=== PATIENT | male | born 1955 | race Caucasian/White ===

== ENCOUNTER 2017-02-17 17:20 | Inpatient (IN) | payer MEDICARE, SELFPAY ==
[2017-02-17] MEDS ORDERED: PROVENTIL 2.5 MG/3 ML NEB IH ONE ×4 (17:49→19:45)
[2017-02-17] MEDS ORDERED: Zithromax 500 MG/ 250 ML NaCl Premix 250 ML IV ONE ×2 (17:49→18:32)
[2017-02-17] MEDS ORDERED: solu-MEDROL 125 MG IV ONE (17:49)
[2017-02-17] MEDS ORDERED: TYLENOL 325 MG PO STA (17:49)
[2017-02-17] MEDS ORDERED: Sodium Chloride 0.9% 1000 ML 1,000 ML IV STA ×2 (17:49→18:06)
[2017-02-17] MEDS ORDERED: ROCEPHIN 1 Gm-D5w 50 ml Bag** 50 ML IV ONE ×2 (17:49→17:57)
[2017-02-17] MEDS ORDERED: TYLENOL 325 MG ONE (17:54)
--- NOTE | 2017-02-17 17:55 | ERPHSYRPT ---
- History of Present Illness Time Seen by Provider: 02/17/17 17:50 Source: patient Exam Limitations: other Patient Subjective Stated Complaint: PT REPORTS INCREASED PRODUCTIVE COUGH-FEVER -REPORTS PAIN ONLY WITH COUGHING-STATES THAT HE HAS RANDOM MUSCLE SPASMS WITH COUGHING Triage Nursing Assessment: PT HOT FLUSHED-RESP LABORED-WHEEZES NOTED THROUGHOUT- RETRACTIONS NOTED Physician History: PATIENT WITH HISTORY OF COPD, HYPERTENSION, AND SLEEP APNEA, COMPLAINS OF DYSPNEA, FEVER, CHILLS TODAY ASSOCIATED WITH MARKED EXERTIONAL DYSPNEA AND PRODUCTIVE COUGH GREEN SPUTUM. DENIES CHEST PAIN. Timing/Duration: day(s) Severity of Dyspnea-Max: severe Severity of Dyspnea-Current: severe Possible Cause: occasional episodes Modifying Factors: Improves With: coughing Associated Symptoms: cough, wheezing Allergies/Adverse Reactions: No Known Drug Allergies Allergy (Verified 02/17/17 17:37) Home Medications: AMITRIPTYLINE HCL 50 mg Tab [AMITRIPTYLINE HCL 50 mg Tablet] 50 mg PO HS [History] Aspirin/Dipyridamole [Aggrenox Capsules] 1 cap PO BID 09/02/15 [History] Diazepam [Valium] 10 mg PO HS 09/02/15 [History] Fenofibrate,Micronized [Fenofibrate] 134 mg PO DAILY 09/02/15 [History] Gabapentin [Neurontin] 600 mg PO BID 09/02/15 [History] Hydrocodone Bit/Acetaminophen [Hydrocodon-Acetaminophn 10-325] 10 each PO Q6HPRN PRN 09/02/15 [History] Ipratropium/Albuterol Sulfate [Combivent Respimat Common Canister] 1 puff IH QID 09/02/15 [History] Lamotrigine 100 mg [lamICTAL 100MG TABLET] 100 mg PO BID 09/02/15 [History ] Meloxicam 15 mg [Meloxicam 15 MG] 15 mg PO DAILY 09/02/15 [History] Metoprolol Succinate 50 mg [Toprol Xl 50 MG] 50 mg PO DAILY 09/02/15 [ History] PANTOPRAZOLE 40 mg Tablet [Protonix 40MG Tablet] 40 mg PO DAILY 09/02/15 [ History] Roflumilast [Daliresp] 500 mcg PO DAILY 09/02/15 [History] Verapamil HCl 120 mg PO HS 09/02/15 [History] Zonisamide [Zonegran] 100 mg PO TID 09/02/15 [History] Albuterol/Ipratropium 3ml Neb* [DUONEB 0.5-3 MG/3 ml Neb] 3 ml IH QID [History] Docusate Sodium 100 mg [Colace 100 MG] 100 mg PO BID 02/21/16 [History] Fluticasone/Salmeterol Disc [Advair 250-50 Diskus 14 Dose] 1 each IH BID 02/21/16 [History] Losartan/Hydrochlorothiazide [Losartan-Hctz 50-12.5 mg Tab] 1 each PO DAILY 03/03 [History] Quetiapine Fumarate [Seroquel] 50 mg PO HS 02/21/16 [History] Tizanidine HCl 4 mg [Zanaflex 4 MG] 4 mg PO HS 02/21/16 [History] Albuterol 2.5 mg/3 ml Neb [Proventil 2.5 mg/3 ml Neb] 2.5 mg IH Q6H PRN PRN 03/06/16 [History] Hx Tetanus, Diphtheria Vaccination/Date Given: No Hx Influenza Vaccination/Date Given: Yes Hx Pneumococcal Vaccination/Date Given: Yes Immunizations Up to Date: Yes - Review of Systems Constitutional: Fever, Chills Eyes: No Symptoms Ears, Nose, & Throat: No Symptoms Respiratory: Cough, Dyspnea, Dyspnea on Exertion (JARQUIN) Cardiac: Palpitations, No Chest Pain, No Edema, No Syncope Abdominal/Gastrointestinal: No Symptoms, No Abdominal Pain, No Nausea, No Vomiting, No Diarrhea Genitourinary Symptoms: No Symptoms, No Dysuria Musculoskeletal: No Symptoms, No Back Pain, No Neck Pain Skin: No Symptoms, No Rash Neurological: No Dizziness, No Focal Weakness, No Sensory Changes Psychological: No Symptoms Endocrine: No Symptoms All Other Systems: Reviewed and Negative - Past Medical History Pertinent Past Medical History: Yes Neurological History: Stroke, TIA, Seizures ENT History: No Pertinent History Cardiac History: Hypertension Respiratory History: COPD Endocrine Medical History: No Pertinent History Musculoskeletal History: No Pertinent History GI Medical History: No Pertinent History, GERD History: No Pertinent History Psycho-Social History: No Pertinent History Male Reproductive Disorders: No Pertinent History Other Medical History: sleep apnea, perpheral neuropathy, - Past Surgical History Past Surgical History: Yes Neuro Surgical History: No Pertinent History Cardiac: No Pertinent History, Cardiac Catheterization Respiratory: No Pertinent History Gastrointestinal: Cholecystectomy Genitourinary: No Pertinent History Musculoskeletal: No Pertinent History Male Surgical History: No Pertinent History Other Surgical History: pt states 20 yrs ago a bone was taken out near left eye , carpal tunnel bilat - Social History Smoking Status: Current every day smoker How long have you smoked: 16 years o Exposure to second hand smoke: No Drug Use: none Patient Lives Alone: No Significant Family History: heart disease, hypertension, stroke - Nursing Vital Signs Nursing Vital Signs: Initial Vital Signs Temperature 102.3 F Temperature Source Oral Pulse Rate 121 Respiratory Rate 24 Blood Pressure [] 147/72 Pain Intensity 0 - Physical Exam General Appearance: no apparent distress, alert Eye Exam: PERRL/EOMI Ears, Nose, Throat Exam: hearing grossly normal Neck Exam: normal inspection, supple Respiratory Exam: diminished breath sounds, prolonged expirations, rhonchi, wheezing Cardiovascular/Chest Exam: normal heart sounds, regular rate/rhythm, tachycardia Abdominal/Gastrointestinal Exam: soft, normal bowel sounds, No tenderness, No distention, No mass Extremity Exam: non-tender, normal range of motion, normal inspection, no calf tenderness, no pedal edema Peripheral Pulses Exam: carotid (R): 2+, carotid (L): 2+, femoral (R): 2+, femoral (L): 2+, dorsalis-pedis (R): 2+ Neurologic Exam: alert, oriented x 3, cooperative, 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, sensation nml, No motor deficits Skin Exam: normal color, warm, No dry SpO2 Interpretation: normal SpO2: 95 Oxygen Delivery: Room Air - Radiology Exams Chest X-ray Interpretation: Negative (NO EVIDENCE OF INFILTRATES) Ordered Tests: Active Orders 24 hr Category Date Time Status Bedrest with BRP/BSC ROUTINE Activity 02/17/17 19:20 Active Admission/Status Order ROUTINE Care 02/17/17 19:19 Active Call Admit Doctor for Orders ON ADMISSION Care 02/17/17 19:20 Active Radar Tester STAT Care 02/17/17 17:49 Active Clean Catch Urine Specimen STAT Care 02/17/17 17:49 Active Code Status Order ROUTINE Care 02/17/17 19:19 Active EKG-ER Only STAT Care 02/17/17 17:49 Active IV Care Q6H Care 02/17/17 19:19 Active IV Insertion STAT Care 02/17/17 17:49 Active IV Insertion-2nd Peripheral STAT Care 02/17/17 18:38 Active Intake and Output Q12H Care 02/17/17 19:11 Active Oxygen-ED Only NASAL CANNULA 3 lpm Care 02/17/17 17:49 Active Vital Signs .[id number],q1hx2,[id number] Care 02/17/17 19:11 Active Cardiac Diet Diet 02/17/17 Breakfast Active CHEST 1 VIEW (PORTABLE) Stat Exams 02/17/17 17:50 Taken ARTERIAL BLOOD GASES Urgent Lab 02/17/17 17:49 Completed BLOOD CULTURE Stat Lab 02/17/17 18:10 Received CBC W DIFF Stat Lab 02/17/17 18:10 Completed CMP Stat Lab 02/17/17 18:10 Completed D-DIMER QUANTITATION Stat Lab 02/17/17 18:10 Completed Lactic Acid Urgent Lab 02/17/17 17:49 Completed MAGNESIUM Stat Lab 02/17/17 18:10 Completed Manual Differential NC Stat Lab 02/17/17 18:10 Completed PROTIME WITH INR Stat Lab 02/17/17 18:10 Completed TROPONIN Stat Lab 02/17/17 18:10 Completed UA W/ MICROSCOPIC Stat Lab 02/17/17 18:10 Completed Oxygen NASAL CANNULA 2 lpm RT 02/17/17 19:11 Active Respiratory Nebulizer STAT RT 02/17/17 17:53 Completed Transfer Order Routine Transfer 02/17/17 19:10 Ordered Medication Summary Generic Name Dose Route Start Last Admin Trade Name Freq PRN Reason Stop Dose Admin Acetaminophen 650 mg 02/17/17 19:11 Tylenol 325 Mg PO 03/19/17 19:10 Q4H PRN PRN PAIN AND/OR FEVER Albuterol/Ipratropium 3 ml 02/17/17 19:11 Duoneb 0.5-3 Mg/3 Ml Neb IH 03/19/17 19:10 Q4HPRN PRN SHORTNESS OF BREATH/WHEEZING Azithromycin 250 mls @ 125 mls/hr 02/17/17 17:49 02/17/17 18:34 Zithromax 500 Mg/ 250 Ml Nacl Premix IV 02/17/17 19:48 125 mls/hr STAT ONE Administration Ceftriaxone Sodium/Dextrose 50 mls @ 100 mls/hr 02/18/17 10:00 Rocephin 1 Gm-D5w 50 Ml Bag IV 03/20/17 09:59 Q24H10 DANIEL Azithromycin 250 mls @ 125 mls/hr 02/18/17 10:00 Zithromax 500 Mg/ 250 Ml Nacl Premix IV 03/20/17 09:59 Q24H10 DANIEL Sodium Chloride 1,000 mls @ 200 mls/hr 02/17/17 19:15 Sodium Chloride 0.9% 1000 Ml IV 03/19/17 19:14 .Q5H DANIEL Levalbuterol HCl 1.25 mg 02/17/17 19:22 Xopenex 1.25 Mg/0.5 Ml Ud Nebule IH 03/19/17 19:21 Q2HPRN PRN DYSPNEA Methylprednisolone Sodium Succinate 80 mg 02/17/17 19:30 Solu-Medrol 125 Mg IV 03/19/17 19:29 Q6H DANIEL Discontinued Medications Generic Name Dose Route Start Last Admin Trade Name Freq PRN Reason Stop Dose Admin Acetaminophen 975 mg 02/17/17 17:49 02/17/17 17:54 Tylenol 325 Mg PO 02/17/17 17:50 975 mg STAT STA Administration Acetaminophen Confirm 02/17/17 17:54 Tylenol 325 Mg Administered 02/17/17 17:55 Dose 975 mg .ROUTE .STK-MED ONE Albuterol Sulfate 10 mg 02/17/17 17:49 02/17/17 18:05 Proventil 2.5 Mg/3 Ml Neb IH 02/17/17 17:50 10 mg STAT ONE Administration Albuterol Sulfate Confirm 02/17/17 17:59 Proventil Solution 2.5 Mg/0.5 Ml Administered 02/17/17 18:00 Dose 10 mg IH .STK-MED ONE Ceftriaxone Sodium/Dextrose 50 mls @ 100 mls/hr 02/17/17 17:49 02/17/17 18:02 Rocephin 1 Gm-D5w 50 Ml Bag IV 02/17/17 18:18 100 mls/hr STAT ONE Administration Sodium Chloride 1,000 mls @ 999 mls/hr 02/17/17 17:49 02/17/17 18:02 Sodium Chloride 0.9% 1000 Ml IV 02/17/17 18:49 999 mls/hr .Q1H1M STA Administration Sodium Chloride Confirm 02/17/17 17:57 Sodium Chloride 0.9% 1000 Ml Administered 02/17/17 17:58 Dose 1,000 mls @ ud .ROUTE .STK-MED ONE Ceftriaxone Sodium/Dextrose Confirm 02/17/17 17:57 Rocephin 1 Gm-D5w 50 Ml Bag Administered 02/17/17 17:58 Dose 50 mls @ ud IV .STK-MED ONE Sodium Chloride 1,000 mls @ 999 mls/hr 02/17/17 18:06 02/17/17 18:13 Sodium Chloride 0.9% 1000 Ml IV 02/17/17 19:06 999 mls/hr .Q1H1M STA Administration Sodium Chloride Confirm 02/17/17 18:11 Sodium Chloride 0.9% 1000 Ml Administered 02/17/17 18:12 Dose 1,000 mls @ ud .ROUTE .STK-MED ONE Azithromycin Confirm 02/17/17 18:32 Zithromax 500 Mg/ 250 Ml Nacl Premix Administered 02/17/17 18:33 Dose 250 mls @ ud IV .STK-MED ONE Methylprednisolone Sodium Succinate 125 mg 02/17/17 17:49 02/17/17 18:02 Solu-Medrol 125 Mg IV 02/17/17 17:50 125 mg STAT ONE Administration Methylprednisolone Sodium Succinate Confirm 02/17/17 17:57 Solu-Medrol 125 Mg Administered 02/17/17 17:58 Dose 125 mg .ROUTE .STK-MED ONE Sodium Chloride Confirm 02/17/17 17:59 Sodium Chloride 3 Ml Ud Nebules Administered 02/17/17 18:00 Dose 9 ml IH .STK-MED ONE Lab/Rad Data: Laboratory Result Diagrams 02/17/17 18:10 02/17/17 18:10 Laboratory Results 02/17/17 02/17/17 02/17/17 Range/Units 18:10 18:10 18:10 WBC (4.0-10.5) K/mm3 RBC (4.1-5.6) M/mm3 Hgb (12.5-18.0) gm/dl Hct (42-50) % MCV (78-100) fl MCH (26-32) pg MCHC (32-36) g/dl RDW (11.5-14.0) % Plt Count (150-450) K/mm3 MPV (6-9.5) fl INR 0.98 (0.8-3.0) D-Dimer 0.231 (0.00-0.49) mg/L Puncture Site pCO2 (35-45) mmHg pO2 (75-100) mmHg Base Excess (-2.0-2.0) O2 Saturation (94-100) g/dF ABG pH (7.35-7.45) ABG HCO3 (22-28) ABG O2 Sat (Measured) (95-100) % Mich Test A-a Gradient a/A Ratio Hemoglobin Carboxyhemoglobin (0.0-6.9) % THgb Methemoglobin (1.4-1.5) % Potassium (3.5-5.1) Temperature C POC O2 Flow Rate % Sodium (136-145) mEq/L Chloride (98-107) mEq/L Carbon Dioxide (21-32) mEq/L Anion Gap (5-15) MEQ/L BUN (9-20) mg/dL Creatinine (0.55-1.30) mg/dl Estimated GFR ML/MIN Glucose (70-110) MG/DL Lactic Acid (0.4-2.0) Calcium (8.5-10.1) mg/dL Magnesium (1.8-2.4) mg/dL Total Bilirubin (0.2-1.0) mg/dL AST (15-37) U/L ALT (12-78) U/L Alkaline Phosphatase (46-116) U/L Troponin I (0.000-0.056) ng/ml Serum Total Protein (6.4-8.2) gm/dL Albumin (3.4-5.0) g/dL Ur Collection Type CLEAN CATCH Urine Color YELLOW (YELLOW) Urine Appearance SLIGHTLY CLOUDY (CLEAR) Urine pH 7.5 (5-6) Ur Specific [place] 1.020 (1.005-1.025) Urine Protein NEGATIVE (Negative) Urine Glucose (UA) NEGATIVE (NEGATIVE) mg/dL Urine Ketones NEGATIVE (NEGATIVE) Urine Nitrite NEGATIVE (NEGATIVE) Urine Bilirubin NEGATIVE (NEGATIVE) Urine Urobilinogen 0.2 (0-1) mg/dL Urine WBC (Auto) NEGATIVE (NEGATIVE) Urine RBC (Auto) TRACE-LYSED (0-5) Donny/ul Urine Microscopic RBC 0-2 (0-2) /HPF Urine Microscopic WBC 0-2 (0-5) /HPF Ur Epithelial Cells FEW (FEW) /HPF Urine Bacteria RARE (NEGATIVE) /HPF Influenza Type A Ag NEGATIVE (NEGATIVE) Influenza Type B Ag NEGATIVE (NEGATIVE) RSV (PCR) NEGATIVE (Negative) Specimen Received 02/17/17 1810 02/17/17 02/17/17 02/17/17 Range/Units 18:10 18:10 17:49 WBC 10.5 (4.0-10.5) K/mm3 RBC 4.15 (4.1-5.6) M/mm3 Hgb 13.3 (12.5-18.0) gm/dl Hct 40.6 L (42-50) % MCV 97.8 (78-100) fl MCH 32.0 (26-32) pg MCHC 32.8 (32-36) g/dl RDW 13.1 (11.5-14.0) % Plt Count 202 (150-450) K/mm3 MPV 8.6 (6-9.5) fl INR (0.8-3.0) D-Dimer (0.00-0.49) mg/L Puncture Site LEFT RADIAL pCO2 37 (35-45) mmHg pO2 71 L (75-100) mmHg Base Excess -1.6 (-2.0-2.0) O2 Saturation 92.2 L (94-100) g/dF ABG pH 7.40 (7.35-7.45) ABG HCO3 22.9 (22-28) ABG O2 Sat (Measured) 97.6 (95-100) % Mich Test YES A-a Gradient 32 a/A Ratio 0.69 Hemoglobin 12.4 Carboxyhemoglobin 4.1 (0.0-6.9) % THgb Methemoglobin 1.3 L (1.4-1.5) % Potassium 4.1 4.3 (3.5-5.1) Temperature 37.0 C POC O2 Flow Rate 21 % Sodium 138 (136-145) mEq/L Chloride 103 (98-107) mEq/L Carbon Dioxide 23.7 (21-32) mEq/L Anion Gap 15.5 H (5-15) MEQ/L BUN 12 (9-20) mg/dL Creatinine 1.70 H (0.55-1.30) mg/dl Estimated GFR 44 ML/MIN Glucose 130 H (70-110) MG/DL Lactic Acid 1.7 (0.4-2.0) Calcium 9.2 (8.5-10.1) mg/dL Magnesium 1.7 L (1.8-2.4) mg/dL Total Bilirubin 0.3 (0.2-1.0) mg/dL AST 14 L (15-37) U/L ALT 19 (12-78) U/L Alkaline Phosphatase 52 (46-116) U/L Troponin I < 0.017 (0.000-0.056) ng/ml Serum Total Protein 7.4 (6.4-8.2) gm/dL Albumin 3.9 (3.4-5.0) g/dL Ur Collection Type Urine Color (YELLOW) Urine Appearance (CLEAR) Urine pH (5-6) Ur Specific [place] (1.005-1.025) Urine Protein (Negative) Urine Glucose (UA) (NEGATIVE) mg/dL Urine Ketones (NEGATIVE) Urine Nitrite (NEGATIVE) Urine Bilirubin (NEGATIVE) Urine Urobilinogen (0-1) mg/dL Urine WBC (Auto) (NEGATIVE) Urine RBC (Auto) (0-5) Donny/ul Urine Microscopic RBC (0-2) /HPF Urine Microscopic WBC (0-5) /HPF Ur Epithelial Cells (FEW) /HPF Urine Bacteria (NEGATIVE) /HPF Influenza Type A Ag (NEGATIVE) Influenza Type B Ag (NEGATIVE) RSV (PCR) (Negative) Specimen Received - Progress Progress Note: 02/17/17 18:27 PATIENT PLACED ONTO SEPSIS PROTOCOL IV NORMAL SALINE 35OO TO START AT 1820 OVER 3 HOURS, CONTINUOUS ALBUTEROL AEROSOL 10MG OVER 1 HOUR, AFTER 2 SETS OF BLOOD CULTURES ROCEPHIN 1GM, ZITHROMAX 500MG IVPG 02/17/17 18:29 Discussed with : Momo (DISCUSSED WITH DR SORIANO AT 1849 FOR ADMISSION) Will see patient in: hospital (full admit) - Departure Time of Disposition: 19:25 Departure Disposition: In-patient Admission Clinical Impression: ACUTE EXACERBATION COPD WITH SEPSIS Condition: Stable Critical Care Time: No Referrals: CRISTHIAN CHANDLER MD [Primary Care Provider] -
[2017-02-17 17:56] LABS: A-aADO2 32; ALLEN TEST OK? YES; ARTERIAL BLD GAS O2 SATURATION 97.6 % (95-100); ARTERIAL BLOOD GAS BASE EXCESS -1.6 (-2.0-2.0); ARTERIAL BLOOD GAS FIO2 21 %; ARTERIAL BLOOD GAS PO2 71 mmHg (75-100); Lactic Acid 1.7 (0.4-2.0)
[2017-02-17] MEDS ORDERED: Sodium Chloride 0.9% 1000 ML 1,000 ML ONE ×2 (17:57→18:11)
[2017-02-17] MEDS ORDERED: solu-MEDROL 125 MG ONE (17:57)
[2017-02-17] MEDS ORDERED: PROVENTIL Solution 2.5 MG/0.5 ML IH ONE (17:59)
[2017-02-17] MEDS ORDERED: Sodium Chloride 3 ML UD NEBULES IH ONE (17:59)
[2017-02-17 18:17] LABS: Mean Cell Volume 97.8 fl (78-100); Mean Platelet Volume 8.6 fl (6-9.5); Platelet Count 202 K/mm3 (150-450); Red Blood Count 4.15 M/mm3 (4.1-5.6); Red Cell Distribution Width 13.1 % (11.5-14.0); White Blood Count 10.5 K/mm3 (4.0-10.5)
[2017-02-17 18:29] LABS: INR 0.98 (0.8-3.0)
[2017-02-17 18:33] LABS: Collection Type CLEAN CATCH
[2017-02-17 18:34] LABS: Bacteria RARE /HPF (NEGATIVE); COMPLETE URINE MICROSCOPIC? YES; Epithelial Cells FEW /HPF (FEW); Ph 7.5 (5-6); WBC 0-2 /HPF (0-5)
[2017-02-17 18:40] LABS: ALBUMIN 3.9 g/dL (3.4-5.0); ALKALINE PHOSPHATASE 52 U/L (46-116); ANION GAP 15.5 MEQ/L (5-15); BILIRUBIN,TOTAL 0.3 mg/dL (0.2-1.0); BLOOD UREA NITROGEN 12 mg/dL (9-20); CHLORIDE 103 mEq/L (98-107); Carbon Dioxide 23.7 mEq/L (21-32); Glucose 130 MG/DL (70-110); MAGNESIUM 1.7 mg/dL (1.8-2.4); Potassium 4.1 mEq/L (3.5-5.1); SGOT/AST 14 U/L (15-37); SGPT/ALT 19 U/L (12-78); SODIUM 138 mEq/L (136-145); Total Protein 7.4 gm/dL (6.4-8.2)
[2017-02-17 18:41] LABS: TROPONIN < 0.017 ng/ml (0.000-0.056)
[2017-02-17] MEDS ORDERED: DUONEB 0.5-3 MG/3 ml Neb IH PRN (19:11)
[2017-02-17] MEDS ORDERED: TYLENOL 325 MG PO PRN (19:11)
[2017-02-17] MEDS ORDERED: Xopenex 1.25 MG/0.5 ML UD NEBULE IH PRN (19:22)
[2017-02-17 19:23] LABS: Eosinophil 4 % (0.00-3.0); Total Cells Counted 100
[2017-02-17 19:25] LABS: ANISOCYTOSIS 1+
[2017-02-17 19:26] LABS: Platelet Estimate NORMAL (NORMAL); Polychromasia 1+
[2017-02-17] MEDS ORDERED: solu-MEDROL 125 MG IV SCH (19:30)
[2017-02-17] MEDS: Sodium Chloride 0.9% 1000 ML 1,000 ML IV SCH (20:33)
[2017-02-17] MEDS ORDERED: Seroquel 25 MG PO SCH (22:35)
[2017-02-17] MEDS ORDERED: Zanaflex 4 MG PO SCH (22:40)
[2017-02-17] MEDS ORDERED: DALIRESP PO SCH (22:40)
[2017-02-17] MEDS: NEURONTIN 300 MG PO SCH (23:37)
[2017-02-17] MEDS: Colace 100 MG PO SCH (23:37)
[2017-02-17] MEDS: Seroquel 25 MG PO SCH (23:37)
[2017-02-17] MEDS: AGGRENOX PO SCH (23:37)
[2017-02-17] MEDS: Valium 5 MG PO SCH (23:38)
[2017-02-18] MEDS: DUONEB 0.5-3 MG/3 ml Neb IH SCH ×6 (03:26→23:09)
[2017-02-18] MEDS: DALIRESP PO SCH ×2 (05:55→21:08)
[2017-02-18] MEDS: solu-MEDROL 125 MG IV SCH ×3 (05:58→17:59)
[2017-02-18] MEDS: Advair Hfa 115/21 Common canister IH SCH ×2 (06:44→19:32)
--- NOTE | 2017-02-18 08:41 | PCM.HP ---
History of Present Illness - Chief Complaint Chief Complaint: Pneumonia History of Present Illness: Mr.MCKEE PINZON is a 61 year old male with a lonstanding history of copd and concurrent tobacco use, he has hx of TIA/CVA as well. He presented with fever, cough productive of green sputum and feeling progressively short of breath. He has been wheezing and worsening despite nebulizer usage at home. - Review of Systems Constitutional: No Fever, No Chills Respiratory: Cough, Short Of Breath, Wheezing Cardiac: No Chest Pain, No Edema, No Syncope Abdominal/Gastrointestinal: No Symptoms Genitourinary Symptoms: No Dysuria Skin: No Rash All Other Systems: Reviewed and Negative Medications & Allergies Home Medications: Home Medication List AMITRIPTYLINE HCL 50 mg Tab [AMITRIPTYLINE HCL 50 mg Tablet] 50 mg PO HS [History Confirmed 02/17/17] Aspirin/Dipyridamole [Aggrenox Capsules] 1 cap PO BID 09/02/15 [History Confirmed 02/17/17] Diazepam [Valium] 10 mg PO HS 09/02/15 [History Confirmed 02/17/17] Fenofibrate,Micronized [Fenofibrate] 134 mg PO DAILY 09/02/15 [History Confirmed 02/17/17] Gabapentin [Neurontin] 600 mg PO BID 09/02/15 [History Confirmed 02/17/17] Hydrocodone Bit/Acetaminophen [Hydrocodon-Acetaminophn 10-325] 10 each PO Q6HPRN PRN 09/02/15 [History Confirmed 02/17/17] Ipratropium/Albuterol Sulfate [Combivent Respimat Common Canister] 1 puff IH QID 09/02/15 [History Confirmed 02/17/17] Lamotrigine 100 mg [lamICTAL 100MG TABLET] 100 mg PO BID 09/02/15 [ History Confirmed 02/17/17] Meloxicam 15 mg [Meloxicam 15 MG] 15 mg PO DAILY 09/02/15 [History Confirmed 12/05] Metoprolol Succinate 50 mg [Toprol Xl 50 MG] 50 mg PO DAILY 09/02/15 [ History Confirmed 02/17/17] PANTOPRAZOLE 40 mg Tablet [Protonix 40MG Tablet] 40 mg PO DAILY 09/02/15 [ History Confirmed 02/17/17] Roflumilast [Daliresp] 500 mcg PO DAILY 09/02/15 [History Confirmed ] Verapamil HCl 120 mg PO HS 09/02/15 [History Confirmed 02/17/17] Zonisamide [Zonegran] 100 mg PO TID 09/02/15 [History Confirmed 02/17/17] Albuterol/Ipratropium 3ml Neb* [DUONEB 0.5-3 MG/3 ml Neb] 3 ml IH QID [History Confirmed 02/17/17] Docusate Sodium 100 mg [Colace 100 MG] 100 mg PO BID 02/21/16 [History Confirmed 02/17/17] Fluticasone/Salmeterol Disc [Advair 250-50 Diskus 14 Dose] 1 each IH BID 02/21/16 [History Confirmed 02/17/17] Losartan/Hydrochlorothiazide [Losartan-Hctz 50-12.5 mg Tab] 1 each PO DAILY 03/03 [History Confirmed 02/17/17] Quetiapine Fumarate [Seroquel] 50 mg PO HS 02/21/16 [History Confirmed 02/17/17] Tizanidine HCl 4 mg [Zanaflex 4 MG] 4 mg PO HS 02/21/16 [History Confirmed 02/17/17] Albuterol 2.5 mg/3 ml Neb [Proventil 2.5 mg/3 ml Neb] 2.5 mg IH Q6H PRN PRN 03/06/16 [History Confirmed 02/17/17] Allergies/Adverse Reactions: Allergies Allergy/AdvReac Type Severity Reaction Status Date / Time No Known Drug Allergies Allergy Verified 02/17/17 17:37 - Past Medical History Past Medical History: Yes Neurological History: Stroke, TIA, Seizures ENT History: No Pertinent History Cardiac History: Hypertension Respiratory History: COPD Endocrine Medical History: No Pertinent History Musculoskelatal History: No Pertinent History GI Medical History: No Pertinent History, GERD History: No Pertinent History Pyscho-Social History: No Pertinent History Male Reproductive Disorders: No Pertinent History Comment: sleep apnea, perpheral neuropathy, - Past Surgical History Past Surgical History: Yes Neuro Surgical History: No Pertinent History Cardiac History: No Pertinent History, Cardiac Catheterization Respiratory Surgery: No Pertinent History GI Surgical History: Cholecystectomy Genitourinary Surgical Hx: No Pertinent History Musculskeletal Surgical Hx: No Pertinent History Male Surgical History: No Pertinent History Other Surgical History: pt states 20 yrs ago a bone was taken out near left eye , carpal tunnel bilat - Social History Smoking Status: Current every day smoker How long have you smoked: 43 years Exposure to second hand smoke: Yes Alcohol: None Drug Use: none Significant Family History: heart disease, hypertension, stroke - Physical Exam Vital Signs: Vital Signs - 24 hr Temp Pulse Resp BP Pulse Ox 02/18/17 06:47 100 H 14 94 L 02/18/17 04:00 98.7 F 98 H 21 106/55 90 L 02/18/17 03:30 95 H 20 99 02/18/17 00:01 105 H 02/18/17 00:00 98.0 F 105 H 20 104/45 97 02/17/17 23:55 20 02/17/17 20:33 100.3 F 123 H 28 H 133/63 96 02/17/17 19:50 119 H 22 97 02/17/17 19:26 95 02/17/17 18:39 121 H 24 147/72 99 02/17/17 17:53 110 H 28 H 95 02/17/17 17:33 102.3 F 120 H 30 H 173/88 95 Oxygen-Last 24 hours O2 Percentage 3 Liters = 32% O2 Percentage 3 Liters = 32% O2 Percentage 2 Liters = 28% General Appearance: no apparent distress, obese Neurologic Exam: alert, oriented x 3 Eye Exam: PERRL/EOMI Respiratory Exam: prolonged expirations, wheezing, No respiratory distress Cardiovascular Exam: regular rate/rhythm, normal heart sounds, normal peripheral pulses Gastrointestinal/Abdomen Exam: soft, normal bowel sounds Extremity Exam: normal inspection, normal range of motion, pelvis stable Skin Exam: normal color, warm, dry, No rash Results - Other Procedures and Tests Respiratory Therapy 02/17/17 19:11 Oxygen NASAL CANNULA 2 lpm 02/18/17 03:00 neb [Respiratory Nebulizer] Q4H 02/18/17 05:34 Respiratory MDI BID Assessment/Plan (1) Acute exacerbation of chronic obstructive pulmonary disease (COPD) Current Visit: No Status: Acute Assessment & Plan: continue rocephin/zithromax, solumedrol 80mg IV q6 hrs and aggressive nebulizer treatments. patient has been hemodynamically stable, no obvious infiltrate on chest xray. awaiting radiology read. ok to transfer to med/surg unit Code(s): J44.1 - CHRONIC OBSTRUCTIVE PULMONARY DISEASE W (ACUTE) EXACERBATION
--- NOTE | 2017-02-18 08:41 | XRAY ---
Indication: Cough. Comparison: April 30, 2016. Portable chest remains hyperinflated and clear. Heart is not enlarged. Bony thorax intact. No new/acute findings.
[2017-02-18] MEDS ORDERED: MEDICATION INTERVENTION MC PRN (10:35)
[2017-02-18] MEDS: Sodium Chloride 0.9% 1000 ML 1,000 ML IV SCH (11:03)
[2017-02-18] MEDS: ROCEPHIN 1 Gm-D5w 50 ml Bag** 50 ML IV SCH (11:32)
[2017-02-18] MEDS: Zithromax 500 MG/ 250 ML NaCl Premix 250 ML IV SCH (11:34)
[2017-02-18] MEDS: NEURONTIN 300 MG PO SCH ×2 (11:38→21:09)
[2017-02-18] MEDS: AGGRENOX PO SCH ×2 (11:38→21:07)
[2017-02-18] MEDS: Protonix 40MG Tablet PO SCH (11:38)
[2017-02-18] MEDS: Colace 100 MG PO SCH ×2 (11:38→21:08)
[2017-02-18] MEDS: Toprol Xl 50 MG PO SCH (11:39)
[2017-02-18] MEDS: Tricor 145 MG PO SCH (12:28)
[2017-02-18] MEDS: lamICTAL 100MG TABLET PO SCH ×2 (12:28→21:09)
[2017-02-18] MEDS: Norco 10/325 MG Tablet PO PRN ×2 (12:30→20:15)
[2017-02-18] MEDS ORDERED: ZONISAMIDE 100 MG PO SCH (15:00)
[2017-02-18] MEDS: PATIENT OWN MEDICATION PO SCH ×2 (15:13→21:10)
[2017-02-18] MEDS: Valium 5 MG PO SCH (21:11)
[2017-02-18] MEDS: Seroquel 25 MG PO SCH (21:11)
[2017-02-18] MEDS ORDERED: VERAPAMIL HCL 120 MG PO SCH (22:00)
[2017-02-18] MEDS ORDERED: ISOPTIN S.R. 240 MG PO SCH (22:00)
[2017-02-18 23:40] LABS: A-aADO2 94; ARTERIAL BLD GAS O2 SATURATION 98.3 % (95-100); ARTERIAL BLOOD GAS BASE EXCESS -3.8 (-2.0-2.0); ARTERIAL BLOOD GAS FIO2 36 %; ARTERIAL BLOOD GAS PO2 91 mmHg (75-100); ARTERIAL BLOOD GAS pH 7.24 (7.35-7.45)
[2017-02-19] MEDS: solu-MEDROL 125 MG IV SCH ×2 (00:01→08:10)
[2017-02-19] MEDS ORDERED: Ativan 2 MG/1 ML VIAL IV PRN ×2 (00:46→00:57)
[2017-02-19] MEDS ORDERED: TRANDATE 20 MG/5 ML SYRINGE IV ONE ×2 (00:47→00:57)
[2017-02-19] MEDS ORDERED: Ativan 2 MG/1 ML VIAL ONE (00:53)
[2017-02-19] MEDS ORDERED: Cardizem IV 50 MG/10 ML IV ONE (01:06)
[2017-02-19] MEDS ORDERED: CARDIZEM DRIP 100 MG/100 ML D5W 100 ML IV ONE (01:08)
[2017-02-19] MEDS ORDERED: CARDIZEM DRIP 100 MG/100 ML D5W 100 ML IV PRN (01:13)
[2017-02-19 01:23] LABS: A-aADO2 338; ARTERIAL BLD GAS O2 SATURATION 98.8 % (95-100); ARTERIAL BLOOD GAS FIO2 100 %; ARTERIAL BLOOD GAS PO2 128 mmHg (75-100); ARTERIAL BLOOD GAS pH < 6.80 (7.35-7.45)
[2017-02-19] MEDS ORDERED: Amidate 20 MG/10 ML IV ONE (01:34)
[2017-02-19] MEDS ORDERED: Zemuron 100 MG/10 ML IV ONE ×2 (01:36→01:48)
[2017-02-19] MEDS ORDERED: Sodium Chloride 0.9% 250 ML 250 ML IV ONE (01:44)
[2017-02-19] MEDS ORDERED: Versed 50 MG/ 10 Ml MDV ONE (01:46)
[2017-02-19] MEDS ORDERED: Versed 50 MG/ 10 Ml MDV*** 50 MG in Sodium Chloride 0.9% 250 ML 240 ML IV PRN (01:54)
--- NOTE | 2017-02-19 02:24 | PCM.DS ---
Discharge Summary Date of Admission: 02/17/17 20:15 Admitting Physician: CRISTHIAN CHANDLER Primary Care Provider: CRISTHIAN CHANDLER Allergies Allergies No Known Drug Allergies Allergy (Verified 02/17/17 17:37) Hospital Summary - Hospital Course Hospital Course: patient was admitted with productive cough, wheezing and shortness of breath c/ w copd exacerbation. he was admitted and started on abx, nebulizer and steroid therapy. he became acutely dyspneic and developed respiratory distress on the floor after admission. he was transferred to ICU, was in SVT with heart rate 170 's and hypertension. he was intubated during rapid response, placed on versed gtt and cardizem gtt. he is currently hemodynamically stable and oxygenating well on the ventilator. - Vitals & Intake/Output Vital Signs: Vital Signs Temperature 98.9 F 02/19/17 00:00 Pulse Rate 129 H 02/19/17 00:00 Respiratory Rate 38 H 02/19/17 00:00 Blood Pressure 184/89 02/19/17 00:00 O2 Sat by Pulse Oximetry 84 L 02/19/17 00:00 Oxygen-Last Documented O2 Percentage 3 Liters = 32% Intake & Output: Intake & Output 02/16/17 02/17/17 02/18/17 02/19/17 11:59 11:59 11:59 11:59 Intake Total 2210 480 Output Total 850 Balance 1360 480 Weight 134.3 kg - Lab Result Diagrams: 02/17/17 18:10 02/17/17 18:10 Lab Results-Last 24 Hrs: Lab Results-Last 24 Hours 02/18/17 02/19/17 Range/Units 23:38 01:21 Puncture Site Pending Pending pCO2 57 H > 150 H* (35-45) mmHg pO2 91 128 H* (75-100) mmHg Base Excess -3.8 L (-2.0-2.0) O2 Saturation 95.3 96.0 (94-100) g/dF ABG pH 7.24 L* < 6.80 L* (7.35-7.45) ABG HCO3 24.4 Pending (22-28) ABG O2 Sat (Measured) 98.3 98.8 (95-100) % Mich Test Pending Pending A-a Gradient 94 338 a/A Ratio 0.49 0.27 Hemoglobin 13.1 14.4 Carboxyhemoglobin 1.5 1.9 (0.0-6.9) % THgb Methemoglobin 1.6 H 0.9 L (1.4-1.5) % Potassium 5.6 H 7.0 H* (3.5-5.1) Temperature 37.0 37.0 C POC O2 Flow Rate 36 100 % - Radiology Exams Ordered Rad Exams-Entire Visit: Radiology Procedures Category Date Time Status CHEST 1 VIEW (PORTABLE) Urgent Exams 02/19/17 01:48 Taken - Procedures and Test Procedures and Tests throughout Hospitalization: Therapy Orders & Screens 02/17/17 19:11 Oxygen NASAL CANNULA 2 lpm Comment: Diagnosis: Shortness of Breath 02/17/17 19:46 Respiratory Nebulizer STAT Comment: Diagnosis: Shortness of Breath 02/18/17 03:00 neb [Respiratory Nebulizer] Q4H Comment: DUO Q4 Diagnosis: Pneumonia 02/18/17 05:34 Respiratory MDI BID Comment: Diagnosis: Pneumonia 02/18/17 21:04 neb [Respiratory Nebulizer] PRN Comment: DUO Q4PRN Diagnosis: Pneumonia Discharge Exam General Appearance: other (sedated, unresponsive) Skin Exam: normal color, warm, dry Respiratory Exam: prolonged expirations, wheezing Cardiovascular Exam: normal heart sounds, tachycardia Gastrointestinal/Abdomen Exam: soft, No tenderness, No mass Extremity Exam: normal inspection, normal range of motion Final Diagnosis/Problem List - Final Discharge Diagnosis/Problem (1) Respiratory failure with hypoxia and hypercapnia Current Visit: Yes Status: Acute Assessment & Plan: patient intubated and on versed gtt, discussed case with Dr Meghana Craven, he agrees with current management. will see patient later this morning to consider transfer to regional (2) SVT (supraventricular tachycardia) Current Visit: Yes Status: Acute Assessment & Plan: stable, continue cardizem gtt at this time. (3) Acute exacerbation of chronic obstructive pulmonary disease (COPD) Current Visit: No Status: Acute - Discharge Disposition: Home, Self-Care Condition: Stable Prescriptions: No Action Roflumilast [Daliresp] 500 mcg PO DAILY Gabapentin [Neurontin] 600 mg PO BID AMITRIPTYLINE HCL 50 mg Tab [AMITRIPTYLINE HCL 50 mg Tablet] 50 mg PO HS Meloxicam 15 mg [Meloxicam 15 MG] 15 mg PO DAILY Fenofibrate,Micronized [Fenofibrate] 134 mg PO DAILY Hydrocodone Bit/Acetaminophen [Hydrocodon-Acetaminophn 10-325] 10 each PO Q6HPRN PRN PRN Reason: Pain Diazepam [Valium] 10 mg PO HS Lamotrigine 100 mg [lamICTAL 100MG TABLET] 100 mg PO BID Ipratropium/Albuterol Sulfate [Combivent Respimat Common Canister] 1 puff IH QID Metoprolol Succinate 50 mg [Toprol Xl 50 MG] 50 mg PO DAILY PANTOPRAZOLE 40 mg Tablet [Protonix 40MG Tablet] 40 mg PO DAILY Verapamil HCl 120 mg PO HS Zonisamide [Zonegran] 100 mg PO TID Aspirin/Dipyridamole [Aggrenox Capsules] 1 cap PO BID Quetiapine Fumarate [Seroquel] 50 mg PO HS Losartan/Hydrochlorothiazide [Losartan-Hctz 50-12.5 mg Tab] 1 each PO DAILY Tizanidine HCl 4 mg [Zanaflex 4 MG] 4 mg PO HS Fluticasone/Salmeterol Disc [Advair 250-50 Diskus 14 Dose] 1 each IH BID Docusate Sodium 100 mg [Colace 100 MG] 100 mg PO BID Albuterol/Ipratropium 3ml Neb* [DUONEB 0.5-3 MG/3 ml Neb] 3 ml IH QID Albuterol 2.5 mg/3 ml Neb [Proventil 2.5 mg/3 ml Neb] 2.5 mg IH Q6H PRN PRN PRN Reason: Shortness Of Breath/Wheezing Follow up with: CRISTHIAN CHANDLER MD [Primary Care Provider] -
[2017-02-19] MEDS ORDERED: FENTANYL 500 MCG/10 ML VIAL IV ONE (02:29)
[2017-02-19] MEDS ORDERED: SUBLIMAZE 100 MCG/2 ML IV ONE (02:50)
[2017-02-19] MEDS ORDERED: SUBLIMAZE 1000 Mcg/ 20 Ml*** 1,500 MCG in Sodium Chloride 0.9% 150 ML 120 ML IV SCH (02:55)
[2017-02-19] MEDS: DUONEB 0.5-3 MG/3 ml Neb IH SCH ×3 (03:17→10:45)
[2017-02-19 03:34] LABS: COMPLETE URINE MICROSCOPIC? YES; Collection Type CATH; Ph 5.5 (5-6)
[2017-02-19 03:35] LABS: Epithelial Cells RARE /HPF (FEW); Mucus SLIGHT /HPF (NEGATIVE)
[2017-02-19 04:28] LABS: ALLEN TEST OK? YES
[2017-02-19 04:28] LABS: ALLEN TEST OK? YES
[2017-02-19 06:06] LABS: ALBUMIN 3.4 g/dL (3.4-5.0); ANION GAP 13.6 MEQ/L (5-15); BILIRUBIN,TOTAL 0.2 mg/dL (0.2-1.0); Carbon Dioxide 24.6 mEq/L (21-32); Total Protein 6.8 gm/dL (6.4-8.2)
[2017-02-19 06:11] LABS: Potassium 7.4 mEq/L (3.5-5.1)
[2017-02-19] MEDS ORDERED: D50W 50 ml Abboject IV ONE ×2 (06:18→06:56)
[2017-02-19] MEDS ORDERED: NovoLIN R IV ONE (06:34)
[2017-02-19] MEDS ORDERED: Calcium Gluconate 10% 1000 MG IV ONE (06:48)
[2017-02-19] MEDS: Advair Hfa 115/21 Common canister IH SCH (06:52)
[2017-02-19] MEDS ORDERED: NovoLIN R ONE (06:55)
[2017-02-19] MEDS ORDERED: VERSED 5 MG/5 ML IV PRN (07:02)
[2017-02-19] MEDS ORDERED: Kayexylate 15 GM/60 ML RC ONE (07:25)
[2017-02-19 07:42] LABS: A-aADO2 80; ARTERIAL BLD GAS O2 SATURATION 100.2 % (95-100); ARTERIAL BLD GAS TIDAL VOLUME 700 cc; ARTERIAL BLOOD GAS BASE EXCESS -4.2 (-2.0-2.0); ARTERIAL BLOOD GAS FIO2 100 %; ARTERIAL BLOOD GAS PO2 557 mmHg (75-100); ARTERIAL BLOOD GAS pH 7.21 (7.35-7.45)
[2017-02-19] MEDS: Sodium Chloride 0.9% 1000 ML 1,000 ML IV SCH (08:10)
--- NOTE | 2017-02-19 09:11 | XRAY ---
Indication: Tube placement. Comparison: February 17, 2017. Portable chest demonstrates interval intubation with endotracheal tube tip 4 cm above the real. Left lung base not completely included. Visualized lung holt demonstrates developing interstitial edema and possible small bibasilar effusions. Heart is not enlarged for AP portable technique. Impression: 1. Status post intubation with good endotracheal tube placement. 2. Developing pulmonary edema and small bilateral effusions. Comment: Preliminary interpretation was made by [facility]. No critical discrepancy.
[2017-02-19] MEDS: Zithromax 500 MG/ 250 ML NaCl Premix 250 ML IV SCH (09:55)
[2017-02-19] MEDS: ROCEPHIN 1 Gm-D5w 50 ml Bag** 50 ML IV SCH (09:56)
[2017-02-19] MEDS ORDERED: FENOFIBRATE MICRONIZED 134 MG PO SCH (10:00)
[2017-02-19 10:22] LABS: ANION GAP 11.9 MEQ/L (5-15); Carbon Dioxide 23.3 mEq/L (21-32)
[2017-02-19 10:26] LABS: Potassium 6.3 mEq/L (3.5-5.1)
[2017-02-19 12:10] VITALS: BP 121/80; PULSE 84; O2SAT 97
[2017-02-19] MEDS: AGGRENOX PO SCH (12:17)
[2017-02-19] MEDS: lamICTAL 100MG TABLET PO SCH (12:17)
[2017-02-19] MEDS: NEURONTIN 300 MG PO SCH (12:17)
[2017-02-19] MEDS: Colace 100 MG PO SCH (12:17)
[2017-02-19] MEDS: Toprol Xl 50 MG PO SCH (12:18)
[2017-02-19] MEDS: Protonix 40MG Tablet PO SCH (12:18)
[2017-02-19] MEDS: Tricor 145 MG PO SCH (12:18)
[2017-02-19] MEDS: PATIENT OWN MEDICATION PO SCH (12:18)
== END 2017-02-19 11:30 | disposition short-term general hospital (02) | DRG 208 ==
LOC: ED 17:20 → ICU 20:15 → MED SURG 02-18 13:38 → ICU 02-19 00:52
PROVIDERS: ADMIT Family Medicine; ATTEND Family Medicine
PROC: 5A1935Z Respiratory Ventilation, Less than 24 Consecutive Hours (ICD-10-PCS; principal; 2017-02-19)
PROC: 0BH18EZ Insertion of Endotracheal Airway into Trachea, Via Natural or Artificial Opening Endoscopic (ICD-10-PCS; 2017-02-19)
DX: J96.01 Acute respiratory failure with hypoxia (principal); I47.1 Supraventricular tachycardia; J44.1 Chronic obstructive pulmonary disease with (acute) exacerbation; J96.02 Acute respiratory failure with hypercapnia; E87.5 Hyperkalemia; Z72.0 Tobacco use; Z86.73 Personal history of transient ischemic attack (TIA), and cerebral infarction without residual deficits; G40.909 Epilepsy, unspecified, not intractable, without status epilepticus; I10 Essential (primary) hypertension; G47.30 Sleep apnea, unspecified; G62.9 Polyneuropathy, unspecified; Z79.899 Other long term (current) drug therapy
CPT/HCPCS: 31500; 36000; 36415; 36600; 71010; 80048; 80053; 81000; 82375; 82803; 83605; 83735; 84132; 84484; 85025; 85379; 85610; 87040; 87086; 87631; 93005; 93041; 94002; 94640; 94760; 94770; 94799; 96360; 96361; 96365; 96367; 96374; 99285; J0456; J0610; J0696; J2060; J2250; J2930; J3010; A9270-GY